=== PATIENT | female | born 1935 | race Caucasian/White ===

== ENCOUNTER 2016-12-01 17:08 | Emergency (ER) | payer MEDICARE, BC ==
--- NOTE | 2016-12-04 16:15 | ER ---
DATE SEEN: 12/01/2016 TIME SEEN: The patient was seen at 1850 hours. CHIEF COMPLAINT: Throat pain. HISTORY OF PRESENT ILLNESS: This 81-year-old woman just got through eating salad, dried jerky-beef and roast beef, and she had some of the food caught in her throat. She transiently experienced odynophagia, dysphagia, and subsequently was able to swallow food after cessation of pain. No bleeding. No compromised respiratory status. No history of GERD. No tachycardia. No shortness of breath. No previous myocardial ischemia or infarction. PAST MEDICAL HISTORY: No diabetes. No heart disease. No high blood pressure. No asthma. Currently, she is not taking any medicines except for aspirin. No other significant illnesses. PAST SURGICAL HISTORY: Previous fracture of her left elbow, which required "wiring" and appendectomy. REVIEW OF SYSTEMS: Negative except she had sinusitis off and on for 1 to 2 months, which was treated with antibiotic, got better, resolved, and then reoccurred. Cystitis. She is a [place]ipara. She is a . HABITS: Nonsmoker. Drinks alcohol rarely. No other street drugs. FAMILY HISTORY: Six brothers, of which one is living, has lived to 93 years of age and is quite healthy. One brother of a bulbar stroke (he had difficulty swallowing). One brother of diabetes at age 38. One brother in a motor vehicle accident. One brother of cancer of the bladder at age 58. One brother of cancer of the prostate. Mother had CVA and father had cancer of the lungs. MEDICATIONS: 1. Metoprolol. 2. Lipitor. 3. Hydrochlorothiazide. PHYSICAL EXAMINATION: VITAL SIGNS: Blood pressure 141/73, heart rate 107, respirations 20, oxygen saturation 96% on room air, and temperature is 97.6 degrees. GENERAL: Alert woman who is very pleasant. No difficulty breathing. No difficulty speaking. She is exchanging air well. HEENT: PERRLA, intact. Pharynx without abnormality. No erythema. No redness. No abrasions or mechanical irritation. No trauma or swelling. No edema of the uvula. NECK: No neck pain. No submandibular pain. No anterior cervical or posterior cervical triangle pain. LUNGS: Clear to auscultation without rales, except for a few rales in posterior bases which tend to clear with respiratory effort. HEART: S1, S2, with regular rate and rhythm. No S3, no S4. ABDOMEN: Soft. No hepatosplenomegaly. No guarding. No abdominal discomfort. NEUROLOGIC: Not performed. EXTREMITIES: Without edema. ASSESSMENT: 1. Status post upper alimentary tract transient food-induced obstruction. 2. Status post previous left elbow surgery and appendectomy. 3. Status post 1 to 2 months ago sinusitis x2. 4. History of cystitis after drinking coffee and alcohol, which she no longer does. PLAN: The patient is stable from swallowing a foreign body resulting in odynophagia and dysphagia and the latter two have resolved. Follow up with doctor as needed in next 7 days, earlier if worse. /[id number] BE/AYAZ
== END 2016-12-01 19:15 | disposition home or self-care (01) ==
LOC: FB.ED 17:08
CPT/HCPCS: 99281; 99282

== ENCOUNTER 2017-01-05 22:30 | Observation (INO) | payer MEDICARE, BC ==
[2017-01-05] MEDS ORDERED: Glucagon,Human Recombinant 1 MG Vial IV STA (23:03)
[2017-01-05] MEDS ORDERED: Sodium Chloride 0.9% 10 ML Syringe FLUSH PRN (23:12)
[2017-01-05] MEDS ORDERED: Nitroglycerin 0.4 MG Tab.SL SL ONE (23:41)
--- NOTE | 2017-01-06 00:25 | EDM.PDOC ---
ED HPI ENT - General Chief Complaint: ENT Problem Stated Complaint: CHICKEN IN THROAT Time Seen by Provider: 01/05/17 22:54 Source: Reports: Patient History Limitations: Reports: No limitations - History of Present Illness INITIAL COMMENTS - FREE TEXT/NARRATIVE: 81 years old w f came to the ed because a piece of chicken is stuck in her throat since 4.30 pm last today 01/05/2017. Pt tried several home remedies without help. Pt had similar symptoms 3 weeks ago when the food bolus past by its own. Pt denies other acute medical issues at this time. Symptom Onset Date: 01/05/17 Symptom Onset Time: 16:30 Timing/Duration: Reports: Hour(s):, Sudden onset Severity: mild Location: Reports: throat Quality: Reports: Pressure Improves with: Reports: None Worsens with: Reports: Eating Associated symptoms: Reports: denies other symptoms - Related Data Allergies/ADRs: Allergies Allergy/AdvReac Type Severity Reaction Status Date / Time No Known Allergies Allergy Verified 01/05/17 23:00 Home Meds: Home Meds Hydrochlorothiazide 12.5 mg PO DAILY 12/01/16 [History] Metoprolol Succinate 100 mg PO DAILY 12/01/16 [History] atorvaSTATin [Lipitor] 10 mg PO BEDTIME 12/01/16 [History] Past Medical History - Past Health History Medical/Surgical History: Denies Medical/Surgical History HEENT History: Reports: Impaired vision Other HEENT History: wears glasses Cardiovascular History: Reports: High cholesterol, Hypertension Gastrointestinal History: Reports: Other (see below) Other Gastrointestinal History: had food stuck before but eventually went down Musculoskeletal History: Reports: Other (see below) Other Musculoskeletal History: fractured elbow - Infectious Disease History Infectious Disease History: Reports: Chicken pox, Shingles - Past Surgical History GI Surgical History: Reports: Appendectomy Social & Family History - Family History Family Medical History: Noncontributory - Tobacco Use Smoking Status *Q: Never Smoker Second Hand Smoke Exposure: No - Caffeine Use Caffeine Use: Reports: None - Recreational Drug Use Recreational Drug Use: No ED ROS ENT - Review of Systems Review Of Systems: See Below Constitutional: Reports: no symptoms HEENT: Reports: No symptoms Respiratory: Reports: No Symptoms Cardiovascular: Reports: No symptoms Endocrine: Reports: no symptoms GI/Abdominal: Reports: Difficulty swallowing (food bolus) : Reports: no symptoms Musculoskeletal: Reports: no symptoms Skin: Reports: no symptoms Neurological: Reports: No Symptoms Psychiatric: Reports: No symptoms Hematologic/Lymphatic: Reports: no symptoms Immunologic: Reports: no symptoms ED EXAM, ENT - Physical Exam Exam: See Below Exam Limited By: No limitations General Appearance: alert, WD/WN, mild distress Eye Exam: bilateral eye: normal inspection Ears: normal external exam Nose: normal inspection, normal mucousa, no blood Mouth/Throat: Normal inspection, Normal gums, Normal lips, Normal oropharynx Head: atraumatic, normocephalic Neck: normal inspection, supple, non-tender Respiratory/Chest: no respiratory distress, lungs clear, normal breath sounds, no accessory muscle use Cardiovascular: normal peripheral pulses, regular rate, rhythm, no edema GI/Abdominal: normal bowel sounds, soft, non tender, no organomegaly, other ( dysphagia/odynophagia) (Female) Exam: Deferred Rectal (Female) Exam: Deferred Back: normal inspection, full range of motion Extremities: normal inspection, normal range of motion, non-tender, no pedal edema, normal capillary refill Neurological: alert, oriented, CN II-XII intact, normal cognition, normal gait Psychiatric: normal affect, normal mood Skin: Warm, Dry, Intact, Normal color, No rash Course - Vital Signs Text/Narrative:: 81 years old w f came to the ed because a piece of chicken is stuck in her throat since 4.30 pm last today 01/05/2017. Pt tried several home remedies without help. Pt had similar symptoms 3 weeks ago when the food bolus past by its own. Pt denies other acute medical issues at this time. PE: WNWD WF having difficulty to swallowing saliva after eating a piece of chicken at 4.30 pm Labs: Pending Tx: Glucacon, ntd Reexam: No improvement Consultation: Dr. Kurtz: admit or OBS for upper GI at 8 am 01/06/2017 7.30 am: Reexam: Pt was able to swallow and keep water down. Plan: D/C to home with f/u Last Recorded V/S: Last Vital Signs Temp 36.6 C 01/06/17 07:24 Pulse 65 01/06/17 07:24 Resp 18 01/06/17 07:24 BP 143/73 H 01/06/17 07:24 Pulse Ox 98 01/06/17 07:24 - Orders/Labs/Meds Orders: Active Orders 24 hr Category Date Time Status Patient Status [ADT] Routine ADT 01/06/17 00:32 Active Bedrest Bathroom Privileges [RC] ASDIRECTED Care 01/06/17 00:32 Active Oxygen Therapy [RC] PRN Care 01/06/17 00:32 Active Vital Signs [RC] Q4H Care 01/06/17 00:32 Active Ondansetron [Zofran] Med 01/06/17 00:32 Active 4 mg IV Q4H PRN Sodium Chloride 0.9% [Saline Flush] Med 01/05/17 23:12 Active 10 ml FLUSH ASDIRECTED PRN Saline Lock Insert [OM.PC] Routine Oth 01/05/17 23:12 Ordered Resuscitation Status Routine Resus Stat 01/06/17 00:32 Ordered Medication Orders Ondansetron HCl (Zofran) 4 mg IV Q4H PRN PRN Reason: Nausea/Vomiting Sodium Chloride (Saline Flush) 10 ml FLUSH ASDIRECTED PRN PRN Reason: Keep Vein Open Last Admin: 01/05/17 23:21 Dose: 10 ml Meds: Medications Generic Name Dose Route Start Last Admin Trade Name Freq PRN Reason Stop Dose Admin Ondansetron HCl 4 mg 01/06/17 00:32 Zofran IV Q4H PRN Nausea/Vomiting Sodium Chloride 10 ml 01/05/17 23:12 01/05/17 23:21 Saline Flush FLUSH 10 ml ASDIRECTED PRN Administration Keep Vein Open Discontinued Medications Generic Name Dose Route Start Last Admin Trade Name Freq PRN Reason Stop Dose Admin Glucagon 1 mg 01/05/17 23:03 01/05/17 23:11 Glucagen IV 01/05/17 23:04 1 mg ONETIME STA Administration Nitroglycerin 0.4 mg 01/05/17 23:41 01/05/17 23:46 Nitrostat SL 01/05/17 23:42 0.4 mg ONETIME ONE Administration Departure - Departure Time of Disposition: 00:53 Disposition: Home, Self-Care 01 Condition: fair Clinical Impression: Dysphagia Qualifiers: Dysphagia type: esophageal phase Qualified Code(s): R13.14 - Dysphagia, pharyngoesophageal phase - My Orders Last 24 Hours: My Active Orders 01/05/17 23:12 Sodium Chloride 0.9% [Saline Flush] 10 ml FLUSH ASDIRECTED PRN Saline Lock Insert [OM.PC] Routine 01/06/17 00:32 Patient Status [ADT] Routine Bedrest Bathroom Privileges [RC] ASDIRECTED Oxygen Therapy [RC] PRN Vital Signs [RC] Q4H Ondansetron [Zofran] 4 mg IV Q4H PRN Resuscitation Status Routine - Assessment/Plan Last 24 Hours: My Active Orders 01/05/17 23:12 Sodium Chloride 0.9% [Saline Flush] 10 ml FLUSH ASDIRECTED PRN Saline Lock Insert [OM.PC] Routine 01/06/17 00:32 Patient Status [ADT] Routine Bedrest Bathroom Privileges [RC] ASDIRECTED Oxygen Therapy [RC] PRN Vital Signs [RC] Q4H Ondansetron [Zofran] 4 mg IV Q4H PRN Resuscitation Status Routine
[2017-01-06] MEDS ORDERED: Ondansetron 4 MG/2 ML SDV IV PRN (00:32)
[2017-01-06 07:25] VITALS: BP 143/73
== END 2017-01-06 09:05 | disposition home or self-care (01) ==
LOC: FB.ED 22:30 → FB.MS 01-06 00:34
PROVIDERS: ADMIT Surgery; ATTEND Surgery
DX: R13.14 Dysphagia, pharyngoesophageal phase (principal); I10 Essential (primary) hypertension; E78.00 Pure hypercholesterolemia, unspecified; Z90.49 Acquired absence of other specified parts of digestive tract; Z79.899 Other long term (current) drug therapy
CPT/HCPCS: 36415; 80048; 85025; 85610; 96374; 99283; 99284; A9270; G0378; J1610; J7050